=== PATIENT | female | born 2000 | race Caucasian/White ===

== ENCOUNTER 2024-11-06 21:15 | Emergency (ER) | payer MEDICAID ==
[~2024-11-06] VITALS: Ht 160 cm; Wt 70.0 kg
[2024-11-06 21:23] VITALS: O2SAT 100
[2024-11-06] MEDS: ACETAMINOPHEN 325MG TABLET PO ONE (23:57)
[2024-11-07] MEDS: KETOROLAC 15MG/ML VIAL IM ONE (00:02)
[2024-11-07 00:04] VITALS: BP 121/80; PULSE 84; RESP 16; TEMP 36.5; O2SAT 100
== END 2024-11-07 00:10 | disposition home or self-care (01) ==
LOC: ER 21:15
DX: S93.492A Sprain of other ligament of left ankle, initial encounter (principal); Z79.899 Other long term (current) drug therapy; X58.XXXA Exposure to other specified factors, initial encounter; Y93.89 Activity, other specified; Y92.89 Other specified places as the place of occurrence of the external cause; Y99.8 Other external cause status
CPT/HCPCS: 73610; 29515; 96372; 99283; J1885; Z7610

== ENCOUNTER 2024-12-08 23:22 | Emergency (ER) | payer MEDICAID ==
[~2024-12-08] VITALS: Ht 160 cm; Wt 66.3 kg
[2024-12-08 23:28] VITALS: O2SAT 99
[2024-12-08 23:57] LABS: CLARITY URINE CLEAR (CLEAR); COLOR URINE DARK YELLOW (YELLOW); GLUCOSE URINE NEGATIVE (NEGATIVE); KETONES URINE 3+ (NEGATIVE); LEUKOCYTE ESTERASE URINE NEGATIVE (NEGATIVE); NITRITE URINE NEGATIVE (NEGATIVE); OCCULT BLOOD URINE 2+ (NEGATIVE); PH URINE 6.0 (4.5-8.0); PROTEIN URINE TRACE (NEGATIVE); SPECIFIC GRAVITY URINE 1.024 (1.005-1.030); UROBILINOGEN URINE 1.0 E.U./dL (0.2-1.0)
[2024-12-09 00:04] LABS: *AMPHETAMINES SCREEN URINE PRESUMPTIVE POSITIVE (NEGATIVE); *BARBITURATES SCREEN URINE NEGATIVE (NEGATIVE); *BENZODIAZEPINES SCREEN URINE NEGATIVE (NEGATIVE); *COCAINE SCREEN URINE NEGATIVE (NEGATIVE); CANNABINOID URINE SCREEN NEGATIVE (NEGATIVE); ECSTASY MDMA SCREEN URINE NEGATIVE (NEGATIVE); METHADONE URINE SCREEN NEGATIVE (NEGATIVE); OPIATES URINE SCREEN NEGATIVE (NEGATIVE); PHENCYCLIDINE URINE SCREEN NEGATIVE (NEGATIVE)
[2024-12-09 00:22] LABS: BACTERIA URINE TRACE; RBC URINE 15-25 /hpf (0-2); SQUAMOUS EPITHELIAL CELL URINE 2+ /lpf (RARE/1+)
[2024-12-09 00:50] VITALS: RESP 17
[2024-12-09 00:54] LABS: BASOPHILS % 0.3 % (0.0-2.0); EOSINOPHILS % 0.5 % (0.0-5.0); HEMATOCRIT. 32.1 % (36.0-48.0); HEMOGLOBIN. 11.3 g/dL (12.0-16.0); LYMPHOCYTES % 26.1 % (20.0-50.0); MEAN PLATELET VOLUME 8.1 fl (7.4-10.4); MONOCYTES % 9.1 % (2.0-8.0); NEUTROPHILS % 64.0 % (40.0-76.0); PLATELET 278 x1000/uL (130-400); RED BLOOD CELL COUNT 3.56 mill/uL (4.2-5.4); RED CELL DISTRIBUTION WIDTH 13.4 % (11.6-14.6)
[2024-12-09 01:04] LABS: CREATININE 0.5 mg/dL (0.6-1.0); UREA NITROGEN BLOOD 8 mg/dL (9-23)
[2024-12-09] MEDS ORDERED: ONDA4TAB50 MT (01:57)
[2024-12-09 02:15] LABS: B-HCG QUANTITATIVE 830480 mIU/mL (<6)
[2024-12-09] MEDS: ONDANSETRON 4MG ODT PO ONE (02:21)
[2024-12-09 02:30] VITALS: BP 110/69; PULSE 108; TEMP 36.7; O2SAT 99
== END 2024-12-09 02:32 | disposition home or self-care (01) ==
LOC: ER 23:22
DX: O20.9 Hemorrhage in early pregnancy, unspecified (principal); Z3A.01 Less than 8 weeks gestation of pregnancy; Z79.899 Other long term (current) drug therapy; Z98.890 Other specified postprocedural states
CPT/HCPCS: 99284; 76801; 80305; 81003; 81025; 36415; 76817; 80048; 84702; 85025; 86850; 86900; 86901; Q0162